=== PATIENT | female | born 1970 | race Caucasian/White ===

== ENCOUNTER 2019-02-17 16:23 | Emergency (ER) | payer SELFPAY ==
[~2019-02-17] VITALS: Ht 170.2 cm; Wt 68.9 kg
[2019-02-17 16:26] VITALS: Ht 170.2 cm; Wt 68.9 kg
[2019-02-17 17:25] VITALS: BP 140/80
[2019-02-17 18:03] LABS: BASOPHIL % 0.5 % (0-2); PLATELET COUNT 324 x10^3mcL (130-400); RED CELL DISTRIBUTION WIDTH 14.1 % (11.5-14.5)
[2019-02-17 18:14] LABS: CALCIUM 8.9 mg/dL (8.5-10.1); CARBON DIOXIDE 29.9 mmol/L (21-32); CHLORIDE SERUM 109 mmol/L (98-107); CREATININE SERUM 0.8 mg/dL (0.6-1.0); GFR1 > 60 mL/min; GLUCOSE SERUM 90 mg/dL (74-106); POTASSIUM SERUM 3.6 mmol/L (3.5-5.1); SODIUM SERUM 144 mmol/L (136-145)
[2019-02-17 18:18] LABS: ALKALINE PHOSPHATASE 85 U/L (46-116); ALT/SGPT 26 U/L (14-59); AST/SGOT 15 U/L (15-37); BILIRUBIN TOTAL 0.14 mg/dL (0.20-1.00); TOTAL PROTEIN, SERUM 6.7 g/dL (6.4-8.2)
[2019-02-17 18:19] LABS: ALBUMIN 3.1 g/dL (3.4-5.0)
== END 2019-02-17 18:50 | disposition home or self-care (01) ==
LOC: ED 16:23
PROVIDERS: Emergency Medicine
DX: S20.212A Contusion of left front wall of thorax, initial encounter (principal); X58.XXXA Exposure to other specified factors, initial encounter; Y93.89 Activity, other specified; Y92.89 Other specified places as the place of occurrence of the external cause; Y99.8 Other external cause status
CPT/HCPCS: 36415; J1885; Q0092